=== PATIENT | female | born 1960 | race Caucasian/White ===

== ENCOUNTER → 2016-03-16 | Day surgery (SDC) | payer OTHER ==
[~2016-03-16] MED LIST: BUPIVACAINE HCL PF 0.5% 10 ML VIAL ONE; KETOROLAC TROMETHAMINE 30 MG/ML (IVP) VIAL IV PUSH ONE; LACTATED RINGER'S 1000 ML INJ 1,000 ML ONE; MEPERIDINE HCL 50 MG/ML VIAL ONE; MIDAZOLAM HCL 2 MG/2 ML VIAL ONE; ONDANSETRON HCL 4 MG/2 ML VIAL IV PUSH ONE; PROPOFOL 200 MG/20 ML AMP IV ONE; ceFAZolin 2 GM PREMIX 50 ML ONE; oxyCODONE/ACETAMINOPHEN 5 MG/325 MG TAB ONE
--- NOTE | 2016-03-21 18:31 | MP ---
cc: KOSTAS BORJAS DATE OF SURGERY: March 16, [address] Kostas Borjas. [employer] None. PREOPERATIVE DIAGNOSIS 1. Right foot bunion. 2. Right foot second metatarsal elongation. 3. Right foot third metatarsal elongation. 4. Right foot second digit hammertoe. 5. Right foot third digit hammertoe. POSTOPERATIVE DIAGNOSES 1. Right foot bunion. 2. Right foot second metatarsal elongation. 3. Right foot third metatarsal elongation. 4. Right foot second digit hammertoe. 5. Right foot third digit hammertoe. PROCEDURES PERFORMED 1. Right foot Chevron bunionectomy. 2. Right foot Zbigniew bunionectomy. 3. Extensor hallucis longus lengthening. 4. Faheem osteotomy of second metatarsal. 5. Faheem osteotomy of third metatarsal. 6. Hammertoe repair of the second digit. 7. Hammertoe repair of the third digit. PATHOLOGY SENT None. ANESTHESIA General. HEMOSTASIS Pneumatic ankle tourniquet at 250 mmHg. ESTIMATED BLOOD LOSS 20 mL. MATERIALS USED A BME Zbigniew staple, a cannulated 3-0 Arthrex screw and two non-cannulated Arthrex pop-off screws, 3-0 Monocryl, 3-0 Prolene, one 0.045 K-wire, one 0.062 K-wire. INJECTABLES 10 ccs of 0.5% Marcaine plain. COMPLICATIONS None. INDICATIONS Ms. Harvey is a 55-year-old female well known to me. She presented to my office on more than one occasion with plantar foot pain as well as bunion pain. We spoke about all surgical options. The patient has limited help at home but has arranged for a friend to come and help her for the first 1-2 weeks while she is non-weightbearing. The consent was signed. The procedure was explained. No guarantees were given. PROCEDURE Under mild sedation the patient was brought into the operating room and placed on the operating table in the supine position. Following IV sedation a pneumatic ankle tourniquet was placed on the right ankle. The foot was then scrubbed, prepped and draped in the usual aseptic manner. An Esmarch bandage was used to exsanguinate the right lower extremity and the ankle tourniquet was inflated to 250 mmHg and attention was directed to the dorsal aspect of the first metatarsal-phalangeal joint where a linear longitudinal incision was created, deepened through skin and subcutaneous tissue with care being taken to identify and retract any vital neurovascular structures. The incision was then deepened down to the level of the joint and extended just proximal to the IPJ. A layered dissection was carried out. Attention was directed to the first interspace where a 45 degree angle stab incision was created at the metatarsal-phalangeal joint. The adductor tendon was clamped, using a ___ maneuver, it was severed from its insertion and a small portion of it was removed and taken away from the field in toto. The fibular sesamoidal ligament was also severed as well. Then the oscillating saw was used to remove the medial eminence of the first metatarsal head. The hip was abducted so that the medial aspect of the foot was now dorsal and the Chevron style osteotomy was created in the metatarsal head. The leg was then placed in a neutral position. The capital fragment was translated laterally and was held in place temporarily with a K-wire, checked under fluoroscopy and noted to be in excellent alignment. A 3-0 cannulated screw was then inserted. Excellent compression was noted and the remaining shelf of bone of the first metatarsal was removed using an oscillating saw. Attention was then directed to the phalanx. The most proximal phalanx where a transverse partial cut osteotomy was made and then a distal medial to proximal lateral cut was made and a wedge of bone was removed and a hinge was left intact. Bone clamps were used to reduce the hinge and reduce the IPJ angle. A sizing guide for BME huong was used. Appropriate drill size was used and a size 11 Zbigniew staple was inserted. Excellent compression was noted and reduction in both MPJ and the IPJ angles was noted. Attention was then directed to the dorsal aspect of the second metatarsal-phalangeal and the PIPJ, it was deepened through skin and subcutaneous tissue with care being taken to identify and retract any vital neurovascular structures. The extensor tendon was severed at the PIPJ and the tendon was reflected beyond the level of the MPJ. The facing cartilaginous bones in the PIPJ were removed using an oscillating saw and then attention was directed to the metatarsal head where a 45 degree cut was created through the metatarsal head with the oscillating saw as well. The head was shifted proximally to a more natural position and then held in place with a snap off screw. There was excellent compression noted and then metatarsal head was very stable. The shelf of bone overhanging was removed using a rongeur. A 0.062 K-wire was then inserted through all three phalanges and crossing the metatarsal-phalangeal joint and was checked under fluoroscopy. There was excellent compression noted across the PIPJ and adequate space at the MPJ. The same technique was again used on the third ray. Also of note the extensor hallucis longus tendon was lengthened using Z-style tendon lengthening in order to prevent retraction of the hallux. All incisions were flushed with copious amounts of sterile saline. The tendons, deep and subcutaneous tissues were all closed with 3-0 Monocryl, skin was closed with 3-0 Prolene. 10 ccs of 0.5% Marcaine plain were injected into the foot. Pneumatic ankle tourniquet was released. There was a prompt hyperemic response to all digits of the right foot. Sterile dressings of Adaptic, 4x4s, Grisel and a 4 x 30 posterior splint was applied. The patient tolerated the procedure and the anesthesia well. She will recover in the PACU for a period of time before being discharged home with written and oral postoperative instructions. Kostas HOUSE/TLL /10:40 AM /6:05 PM CARID[facility]
== END | disposition home or self-care (01) ==
LOC: ESDC 06:28
PROVIDERS: ATTEND Podiatrist Foot & Ankle Surgery
DX: M20.11 Hallux valgus (acquired), right foot (principal); M20.41 Other hammer toe(s) (acquired), right foot; M21.611 Bunion of right foot
CPT/HCPCS: 01480; 28285; 28299; 28308; 73630; 76000; C1713; J0690; J1885; J2175; J2250; J2405; J3010; J7120